=== PATIENT | male | born 1995 | race Hispanic/Latino ===

== ENCOUNTER 2024-11-07 15:22 | Emergency (ER) | payer SELFPAY ==
[2024-11-07] VITALS (10 sets, daily range): BP systolic 110–134; BP diastolic 65–78; PULSE 75–120; RESP 16–21; TEMP 37.3–38.9; O2SAT 98–100; BMI 21.7
--- NOTE | 2024-11-07 15:34 | PC.NURSE ---
seen at [facility] on bassem, annabelle
[2024-11-07] MEDS: IBUPROFEN 400 MG TABLET PO (17:42)
[2024-11-07] MEDS: ACETAMINOPHEN 325 MG TABLET 650 MG PO (17:43)
--- NOTE | 2024-11-07 17:50 | PC.NURSE ---
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 patient continues to have headache.
--- NOTE | 2024-11-07 20:56 | DI.CT.S_ITS ---
PROCEDURE: CT HEAD/BRAIN WO CON INDICATIONS: headache, fever TECHNIQUE: Noncontrast 4.5 mm thick angled axial sections acquired from the foramen magnum to the vertex, with coronal and sagittal reformats. For radiation dose reduction, the following was used: automated exposure control, adjustment of mA and/or kV according to patient size. COMPARISON: None. FINDINGS: Image quality: CSF spaces: Basal cisterns are patent. No extra-axial fluid collections. Ventricles are normal in size and shape. Brain: No midline shift. No intracranial mass effect or hemorrhage. Ricketts- white matter interface is normal. Skull and face: Calvarium and visualized facial bones are intact, without suspicious lesions. Sinuses: Visualized sinuses and mastoids are clear. IMPRESSION: CT head without acute intracranial abnormalities. No mass or mass effect visualized. Dictated by: Roel Ludwig M.D. on 11/07/2024 at 21:29 Approved by: Roel Ludwig M.D. on 11/07/2024 at 21:30
[2024-11-07 21:37] LABS: Add Manual Diff / Slide Review NO; Basophils Absolute Auto 100 /uL (0-100); Basophils Percent Auto 0.6 % (0-2); Eosinophils Absolute Auto 0 /uL (0-450); Eosinophils Percent Auto 0.1 % (2-4); Hematocrit 42.3 % (41-53); Hemoglobin 14.5 g/dL (13.5-17.5); Lymphocytes Absolute Auto 1800 /uL (1100-4500); Lymphocytes Percent Auto 16.3 % (25-40); Mean Corpuscular HGB Conc 34.3 % (30-36); Mean Corpuscular Hemoglobin 30.1 PG (26-34); Mean Corpuscular Volume 87.7 fL (80-100); Monocytes Absolute Auto 1800 /uL (0-900); Monocytes Percent Auto 16.5 % (3-14); Neutrophils Absolute Auto 7200 /uL (1500-7000); Neutrophils Percent Auto 66.5 % (50-75); Platelet Count 184 X10^3/uL (150-400); Red Blood Cell Count 4.82 X10^6/uL (4.5-5.9); Red Cell Distribution Width 13.3 % (11.6-14.8); White Blood Cell Count 10.8 X10^3/uL (4.5-11.0)
[2024-11-07 21:47] LABS: Lactate (Lactic Acid) 1.5 mmol/L (0.7-2.1)
[2024-11-07 21:48] LABS: Alanine Aminotransferase 24 IU/L (<50); Albumin 4.3 g/dL (3.5-5.0); Albumin Globulin Ratio 1.2 (1.0-2.8); Alkaline Phosphatase 49 U/L (38-126); Aspartate Aminotransferase 26 IU/L (17-59); BUN Creatinine Ratio 10.2 (6-22); Bilirubin Total 0.5 mg/dL (0.2-1.3); Blood Urea Nitrogen 11 mg/dL (9-20); Calcium 9.3 mg/dL (8.4-10.2); Carbon Dioxide 30 mmol/L (22-32); Chloride 100 mmol/L (98-107); Estimated Glomerular Filt Rate > 60 mL/min (>60); Globulin 3.5 g/dL (1.7-4.1); Glucose 121 mg/dL (70-99); HEMOLYSIS < 15 (0-50); Potassium 3.8 mmol/L (3.4-5.1); Sodium 138 mmol/L (137-145); Total Protein 7.8 g/dL (6.3-8.2)
[2024-11-07 22:04] LABS: Procalcitonin 0.236 ng/mL (<0.5)
[2024-11-07] MEDS: PROCHLORPERAZINE 10 MG/2 ML VIAL IV (22:09)
[2024-11-07] MEDS: SODIUM CHLORIDE 0.9% 1,000 ML 1000 ML IV (22:10)
[2024-11-07] MEDS: diphenhydrAMINE 50 MG/ML VIAL IV (22:10)
[2024-11-07 22:22] LABS: Adenovirus Not Detected (Not Detect); B. parapertussis Not Detected (Not Detecte); Bordetella pertussis Not Detected (Not Detect); Chlamydophila pneumoniae Not Detected (Not Detect); Coronavirus 229E Not Detected (Not Detect); Coronavirus HKU1 Not Detected (Not Detect); Coronavirus NL 63 Not Detected (Not Detect); Coronavirus OC43 Not Detected (Not Detect); Human Metapneumovirus Not Detected (Not Detect); Human Rhinovirus/Enterovirus Not Detected (Not Detect); Influenza A Not Detected (Not Detect); Influenza B Not Detected (Not Detect); Mycoplasma pneumoniae Not Detected (Not Detect); Parainfluenza Virus 1 Not Detected (Not Detect); Parainfluenza Virus 2 Not Detected (Not Detect); Parainfluenza Virus 3 Not Detected (Not Detect); Parainfluenza Virus 4 Not Detected (Not Detect); Respiratory Syncytial Virus Not Detected (Not Detect); SARS- CoV-2 Not Detected (Not Detecte)
--- NOTE | 2024-11-07 22:27 | ED.HA ---
HPI - Headache General Chief Complaint: Headache Stated Complaint: migraine 1xweek Time Seen by Provider: 11/07/24 20:55 Mode of arrival: Ambulatory History of Present Illness HPI Narrative: (Kazakh and some Kiswahili speaking, translation by girlfriend Valentine at bedside. Offered professional translation services, which he declined) 29-year-old male complains of 3 days duration of headache at the top of his head, no injury no trauma. Has had couple episodes of nausea nonbloody emesis. Denies abdominal pain. Had some neck pain earlier today. He was seen at [facility] earlier today, no specific diagnosis recalled, no workup recalled. Was advised to take rxri-cou-eoxydfb medications as needed. Here for worsening headache. Complaint: headache Related Data Allergies Allergy/AdvReac Type Severity Reaction Status Date / Time No Known Drug Allergies Allergy Verified 11/07/24 15:30 Patient History Social History Smoking Status: Never smoker Smoking Status: Never smoker Exam Narrative Exam Narrative: GENERAL: Well-developed patient. Nontoxic appearing. HEAD: Atraumatic. Normocephalic. EYES: Pupils equal round and reactive. Extraocular motions intact. No scleral icterus. No injection or drainage. ENT: Nose without bleeding, purulent drainage. Throat without erythema, tonsillar hypertrophy or exudate. Airway patent. NECK: Trachea midline. Non tender. Moves neck well. CARDIOVASCULAR: Regular rate and rhythm without murmurs, gallops, or rubs. RESPIRATORY: Clear to auscultation. Breath sounds equal bilaterally. No wheezes, rales, or rhonchi. GASTROINTESTINAL: Abdomen soft, non-tender, nondistended. EXTREMITIES: No edema or joint tenderness. BACK: Nontender without deformity or crepitance. No flank tenderness. NEURO: AOx3. Motor functions grossly nonfocal SKIN: No rash or erythema of visible areas Initial Vital Signs Initial Vital Signs: Vital Signs Temperature 99.1 F 11/07/24 15:30 Pulse Rate 120 H 11/07/24 15:30 Respiratory Rate 20 11/07/24 15:30 Blood Pressure 134/77 11/07/24 15:30 Pulse Oximetry 98 11/07/24 15:30 Oxygen Delivery Method Room Air 11/07/24 15:30 Course Orders Ordered: ED Orders 11/07/24 20:56 CT head/brain wo con Stat 11/07/24 21:23 CBC Auto Diff [Complete Blood Count AUTO DIFF] Stat CMP [Comprehensive Metabolic Panel] Stat Lactate (Lactic Acid) Stat Procalcitonin Stat Respiratory Panel (Film Array) Stat 11/07/24 22:42 Blood Culture Stat Discontinued Medications Acetaminophen (Acetaminophen 325 Mg Tablet) 650 mg PO NOW ONE Stop: 11/07/24 17:39 Last Admin: 11/07/24 17:43 Dose: 650 mg Documented By: JOBY Diphenhydramine HCl (Diphenhydramine 50 Mg/Ml Vial) 50 mg IV NOW ONE Stop: 11/07/24 21:51 Last Admin: 11/07/24 22:10 Dose: 50 mg Documented By: KEREN Sodium Chloride (Normal Saline 0.9%) 1,000 mls @ 1,000 mls/hr IV BOLUS ONE Stop: 11/07/24 22:49 Last Infusion: 11/07/24 23:26 Dose: Infused Documented By: Admin: 11/07/24 22:10 Dose: 1,000 mls/hr Documented By: KEREN Ibuprofen (Ibuprofen 400 Mg Tablet) 400 mg PO NOW ONE Stop: 11/07/24 17:39 Last Admin: 11/07/24 17:42 Dose: 400 mg Documented By: JOBY Prochlorperazine (Prochlorperazine 10 Mg/2 Ml Vial) 10 mg IV NOW ONE Stop: 11/07/24 21:51 Last Admin: 11/07/24 22:09 Dose: 10 mg Documented By: KEREN Vital Signs Vital signs: Vital Signs - 8 hr 11/07/24 21:31 11/07/24 21:32 11/07/24 22:00 Temperature 99.9 F H Pulse Rate 85 83 Respiratory Rate 16 16 Blood Pressure 110/72 110/70 Pulse Oximetry 99 99 Oxygen Delivery Method Room Air 11/07/24 22:00 11/07/24 22:30 11/07/24 22:30 Temperature Pulse Rate 84 75 Respiratory Rate 21 19 Blood Pressure 115/65 Pulse Oximetry 99 98 Oxygen Delivery Method 11/07/24 23:00 11/07/24 23:00 11/07/24 23:30 Temperature Pulse Rate 78 91 H Respiratory Rate 21 17 Blood Pressure 111/65 Pulse Oximetry 100 100 Oxygen Delivery Method Room Air 11/07/24 23:30 Temperature Pulse Rate Respiratory Rate Blood Pressure 115/77 Pulse Oximetry Oxygen Delivery Method MDM - Headache Lab Data Attestation: I reviewed the patient's lab results. Lab results narrative: White blood cell count 53630, hemoglobin 14.5, platelets adequate. Glucose 121. Normal renal function. Normal electrolytes. Normal serum CO2. Liver functions normal. Respiratory panel negative. 11/07/24 21:23 11/07/24 21:23 Labs: Lab Results 11/07/24 Range/Units 21:23 WBC 10.8 (4.5-11.0) X10^3/uL RBC 4.82 (4.5-5.9) X10^6/uL Hgb 14.5 (13.5-17.5) g/dL Hct 42.3 (41-53) % MCV 87.7 (80-100) fL MCH 30.1 (26-34) PG MCHC 34.3 (30-36) % RDW 13.3 (11.6-14.8) % Plt Count 184 (150-400) X10^3/uL Neut % (Auto) 66.5 (50-75) % Lymph % (Auto) 16.3 L (25-40) % Reagan % (Auto) 16.5 H (3-14) % Eos % (Auto) 0.1 L (2-4) % Baso % (Auto) 0.6 (0-2) % Neut # (Auto) 7200 H (7167-8872) /uL Lymph # (Auto) 1800 (6575-1969) /uL Reagan # (Auto) 1800 H (0-900) /uL Eos # (Auto) 0 (0-450) /uL Baso # (Auto) 100 (0-100) /uL Sodium 138 (137-145) mmol/L Potassium 3.8 (3.4-5.1) mmol/L Chloride 100 (98-107) mmol/L Carbon Dioxide 30 (22-32) mmol/L BUN 11 (9-20) mg/dL Creatinine 1.08 (0.66-1.25) mg/dL Estimated GFR > 60 (>60) mL/min BUN/Creatinine Ratio 10.2 (6-22) Glucose 121 H (70-99) mg/dL Lactate 1.5 (0.7-2.1) mmol/L Calcium 9.3 (8.4-10.2) mg/dL Total Bilirubin 0.5 (0.2-1.3) mg/dL AST 26 (17-59) IU/L ALT 24 (<50) IU/L Alkaline Phosphatase 49 (38-126) U/L Total Protein 7.8 (6.3-8.2) g/dL Albumin 4.3 (3.5-5.0) g/dL Globulin 3.5 (1.7-4.1) g/dL Albumin/Globulin Ratio 1.2 (1.0-2.8) Procalcitonin 0.236 (<0.5) ng/mL Chlamy pneumoniae PCR Not detected (Not Detect) Adenovirus (PCR) Not detected (Not Detect) B. pertussis DNA (PCR) Not detected (Not Detect) B.parapertussis DNA PCR Not detected (Not Detecte) Coronavirus OC43 (PCR) Not detected (Not Detect) Coronavirus HKU1 (PCR) Not detected (Not Detect) Coronavirus 229E (PCR) Not detected (Not Detect) SARS-CoV-2 (PCR) Not detected (Not Detecte) Coronavirus NL63 (PCR) Not detected (Not Detect) Human Metapneumovir PCR Not detected (Not Detect) Influenza Type A (PCR) Not detected (Not Detect) Influenza Type B (PCR) Not detected (Not Detect) M. pneumoniae (PCR) Not detected (Not Detect) Parainfluenza 1 (PCR) Not detected (Not Detect) Parainfluenza 2 (PCR) Not detected (Not Detect) Parainfluenza 3 (PCR) Not detected (Not Detect) Parainfluenza 4 (PCR) Not detected (Not Detect) RSV (PCR) Not detected (Not Detect) Entero/Rhino (PCR) Not detected (Not Detect) Imaging Data CT scan - head: Radiologist's Impression: IMPRESSION: Diffuse urinary bladder wall thickening and inflammation may be secondary to cystitis or iatrogenic due to radiation change depending on history. Mildly dilated distal ureters are chronic. Enlargement of upper abdominal lymph nodes and presence of periesophageal and bilateral infrahilar lymph nodes. These could be reactive or may indicate extension of metastatic disease. MDM Narrative Medical decision making narrative: 29-year-old male with headache and posterior neck pain triage with fever. Concern for meningitis by history, though patient appears quite nontoxic, able to move neck well, no photophobia. CT head noncontrast study negative. Consider LP, discussed lumbar puncture with patient, patient did not want to have spinal tap. Respiratory panel negative. IV Compazine/Benadryl given with IV fluids, headache symptoms improved. No longer febrile. Advised use of Tylenol and Motrin as needed for fever and for pain control. Patient feeling better and would like to go home. Follow up advised with his regular clinic provider at [place] tomorrow. Return precautions discussed. Home with girlfriend. Discharge Plan Departure Patient Disposition: Home Clinical Impression: Headache Instructions: DI for Headache Activity Restrictions/Additional Instructions: Headache top of your head, fever at triage, neck discomfort, recent vomiting. CT head study showed no acute changes. Labs sent were unremarkable. Respiratory panel was sent and was negative for COVID and influenza and other respiratory pathogens tested. IV fluids and IV Compazine with Benadryl was given, headache significantly improved. You move your neck really well. Concerning constellation of symptoms for meningitis, inflammation of the meninges, though you are non toxic appearing, in your symptoms seemed to be much better. We discussed placing a needle into the spine to obtain spinal fluid for testing to make sure meningitis was not present, but you declined this procedure for now. Fever went away while in the emergency department on recheck. You felt better and wanted to go home. Take Tylenol and or Motrin as needed for pain or headache or fever. Advised recheck in [facility] tomorrow. Return earlier to this/nearest emergency department for any change worsening symptoms or any concerns prior. Consider taking [id number] ibuprofen (Motrin) 200 mg tablets, 2-3 tablets by mouth be taken 3-4 times daily for any fever or discomfort. Consider taking [id number] acetaminophen (Tylenol) 325 mg tablets, 2 tablets by mouth 4 times daily for any fever or discomfort. Stand Alone Forms: Patient Portal/API
== END 2024-11-07 23:58 | disposition home or self-care (01) ==
PROVIDERS: Emergency Provider Emergency Medicine
DX: R51.9 Headache, unspecified (principal); M54.2 Cervicalgia
CPT/HCPCS: 36415; 70450; 80053; 83605; 84145; 85025; 87040; 87633; 96361; 96374; 96375; 99284; J0780; J1200